=== PATIENT | female | born 1985 | race Caucasian/White ===

== ENCOUNTER 2016-08-10 20:47 | Inpatient (IN) | payer MEDICAID ==
[~2016-08-10] VITALS: Ht 162.6 cm; Wt 89.7 kg
[2016-08-10 21:57] VITALS: BP_SYST 118; BP_SYST 120; RESP 16; TEMP 99.4; Ht 162.6 cm; Wt 89.7 kg
[2016-08-10] MEDS: PIPERACIL/TAZO 3.375GM/50ML 50 ML IV SCH (23:17)
[2016-08-10] MEDS: DEXTROSE 5% SALINE 0.9% 1,000 ML IV SCH (23:18)
[2016-08-10] MEDS: ONDANSETRON 4 MG VIAL IV PUSH PRN (23:40)
[2016-08-11] VITALS (8 sets, daily range): BP systolic 104–117; RESP 16–18; TEMP 98.2–100.7
[2016-08-11] MEDS: ACETAMINOPHEN 500 MG TAB PO PRN ×2 (03:15→13:10)
[2016-08-11] MEDS: PIPERACIL/TAZO 3.375GM/50ML 50 ML IV SCH ×4 (05:10→23:21)
[2016-08-11] MEDS: DEXTROSE 5% SALINE 0.9% 1,000 ML IV SCH ×3 (05:11→23:21)
[2016-08-11] MEDS: ONDANSETRON 4 MG VIAL IV PUSH PRN ×2 (11:43→17:56)
[2016-08-11] MEDS ORDERED: MISSING DOSE XX ONE (17:05)
[2016-08-11] MEDS: EXCEDRIN EXTRA STR TAB PO PRN (17:42)
[2016-08-12 03:34] VITALS: BP_SYST 118; RESP 16; TEMP 98.4
[2016-08-12] MEDS: PIPERACIL/TAZO 3.375GM/50ML 50 ML IV SCH ×4 (05:55→23:59)
[2016-08-12 07:35] VITALS: BP_SYST 108; RESP 18; TEMP 98.6
[2016-08-12] MEDS: ONDANSETRON 4 MG VIAL IV PUSH PRN (07:44)
[2016-08-12] MEDS: ENOXAPARIN 40 MG/0.4 ML SYR SUBQ SCH (07:45)
[2016-08-12 11:22] VITALS: BP_SYST 110; RESP 18; TEMP 98.4
[2016-08-12] MEDS: ACETAMINOPHEN 500 MG TAB PO PRN (11:41)
[2016-08-12 16:13] VITALS: BP_SYST 113; RESP 18; TEMP 98.5
[2016-08-12] MEDS: EXCEDRIN EXTRA STR TAB PO PRN (18:32)
[2016-08-12 19:30] VITALS: BP_SYST 126; RESP 16; TEMP 98
[2016-08-12 23:45] VITALS: BP_SYST 122; RESP 16; TEMP 98.2
[2016-08-13] MEDS: DEXTROSE 5% SALINE 0.9% 1,000 ML IV SCH
[2016-08-13] MEDS: ACETAMINOPHEN 500 MG TAB PO PRN (02:45)
[2016-08-13 03:08] VITALS: BP_SYST 104; RESP 16; TEMP 98.2
[2016-08-13] MEDS: PIPERACIL/TAZO 3.375GM/50ML 50 ML IV SCH (06:31)
[2016-08-13 07:11] VITALS: BP_SYST 109; RESP 16; TEMP 97.9
[2016-08-13] MEDS: ENOXAPARIN 40 MG/0.4 ML SYR SUBQ SCH (09:00)
[2016-08-13 11:07] VITALS: BP_SYST 117; RESP 16; TEMP 98.3
[2016-08-13 11:18] VITALS: BP_SYST 109; RESP 16; TEMP 97.9
== END 2016-08-13 12:15 | disposition home or self-care (01) | DRG 864 ==
LOC: 3NT 21:40 → OBSVTOIN 08-11 13:55
PROVIDERS: ADMIT Internal Medicine Gastroenterology; ATTEND Internal Medicine Gastroenterology
CPT/HCPCS: 71020; 74020; 80053; 81001; 82150; 83605; 83690; 84439; 84443; 84702; 84703; 85025; 87040; 87088; 99232; 99255